=== PATIENT | female | born 1985 | race African-American/Black ===

== ENCOUNTER 2021-09-11 10:19 | Emergency (ER) | payer OTHER ==
[~2021-09-11] VITALS: Ht 157.5 cm; Wt 38.1 kg
== END 2021-09-11 15:54 | disposition home or self-care (01) ==
LOC: ER 10:19
DX: O99.611 Diseases of the digestive system complicating pregnancy, first trimester (principal); K92.89 Other specified diseases of the digestive system; Z3A.08 8 weeks gestation of pregnancy; Z20.822 Contact with and (suspected) exposure to COVID-19